=== PATIENT | male | born 1960 | race Caucasian/White ===

== ENCOUNTER 2016-12-03 16:36 | Inpatient (IN) | payer OTHER ==
[~2016-12-03] VITALS: Ht 154.9 cm; Wt 65.5 kg
[~2016-12-03 16:36] MED LIST: ALD50 PO; ALDACTONE25 MG; FER300 PO; FUROSEMIDE20 MG; IND20 PO; LAC PO; LAC15L PO; LASIX40 MG PO; LEVAQUIN750 MG PO; LIPI10; NEPHRO-VITE VITA1 EA PO; PROPRANOLOL HCL10 MG; PROTONIX20 MG PO; XIFAXAN550 M1 PO
[2016-12-03 22:27] LABS: BASOPHIL % 1.1 % (0-2)
[2016-12-03 22:28] LABS: PLATELET COUNT 80 x10^3mcL (130-400); RED CELL DISTRIBUTION WIDTH 16.8 % (11.5-14.5)
[2016-12-03 22:46] LABS: T3 TOTAL 0.81 ng/mL
[2016-12-03 23:00] LABS: CK-MB 0.7 ng/mL (0-3.6)
[2016-12-03 23:05] LABS: CALCIUM 8.3 mg/dL (8.5-10.1); CARBON DIOXIDE 22.5 mmol/L (21-32); CREATININE SERUM 1.4 mg/dL (0.7-1.3); POTASSIUM SERUM 4.1 mmol/L (3.5-5.1)
[2016-12-03 23:11] LABS: BILIRUBIN TOTAL 2.65 mg/dL (0.20-1.00); C REACTIVE PROTEIN 1.1 mg/dL (<=0.9); TOTAL PROTEIN, SERUM 6.6 g/dL (6.4-8.2)
[2016-12-03 23:12] LABS: ALBUMIN 2.1 g/dL (3.4-5.0)
[2016-12-03 23:21] LABS: T4(THYROXINE) 7.4 ug/dL (4.7-13.3)
[2016-12-03 23:29] LABS: UA SPECIFIC GRAVITY >=1.030 (1.005-1.035); microscopic required? YES; urine erythrocyte TRACE (NEGATIVE)
[2016-12-03 23:38] LABS: ERYTHROCYTE SED RATE 69 mm/hr (0-20)
[2016-12-03] MEDS ORDERED: NATURE'S BLEND100 M2 PO (23:55)
[2016-12-03] MEDS ORDERED: PROPRANOLOL HCL20 MG PO (23:57)
[2016-12-03] MEDS ORDERED: ATORVASTATIN CA20 M1 PO (23:59)
[2016-12-04] VITALS (15 sets, daily range): BP systolic 87–134; BP diastolic 39–66
[2016-12-04 03:37] LABS: CHOLESTEROL/HDL RATIO 5.1
[2016-12-04 03:37] LABS: AMPHETAMINE QUAL UR NONE DETECTED (NEG <=1000)
[2016-12-04 20:56] LABS: SOURCE FLUID THORACENTESIS
[2016-12-05 05:57] VITALS: BP 97/56
[2016-12-05 06:30] LABS: CALCIUM 7.9 mg/dL (8.5-10.1); CARBON DIOXIDE 21.4 mmol/L (21-32); CHLORIDE SERUM 108 mmol/L (98-107); CREATININE SERUM 1.3 mg/dL (0.7-1.3); GFR1 > 60 mL/min; GLUCOSE SERUM 74 mg/dL (74-106); MAGNESIUM 1.5 mg/dL (1.8-2.4); PHOSPHOROUS 4.3 mg/dL (2.5-4.9); POTASSIUM SERUM 4.1 mmol/L (3.5-5.1); SODIUM SERUM 137 mmol/L (136-145)
[2016-12-05 06:41] LABS: BASOPHIL % 0.5 % (0-2); PLATELET COUNT 77 x10^3mcL (130-400); RED CELL DISTRIBUTION WIDTH 16.6 % (11.5-14.5)
[2016-12-05 09:39] VITALS: BP 106/54
[2016-12-05 13:06] VITALS: BP 119/59
[2016-12-05 17:07] VITALS: BP 104/66
[2016-12-05 22:13] VITALS: BP 111/62
[2016-12-06 06:08] LABS: BASOPHIL % 1.3 % (0-2)
[2016-12-06 06:24] VITALS: BP 111/64
[2016-12-06 06:28] LABS: CALCIUM 7.6 mg/dL (8.5-10.1); CARBON DIOXIDE 24.8 mmol/L (21-32); CHLORIDE SERUM 110 mmol/L (98-107); CREATININE SERUM 1.2 mg/dL (0.7-1.3); GFR1 > 60 mL/min; GLUCOSE SERUM 88 mg/dL (74-106); MAGNESIUM 1.9 mg/dL (1.8-2.4); PHOSPHOROUS 3.3 mg/dL (2.5-4.9); POTASSIUM SERUM 3.7 mmol/L (3.5-5.1); SODIUM SERUM 139 mmol/L (136-145)
[2016-12-06 06:49] LABS: PLATELET COUNT 73 x10^3mcL (130-400); RED CELL DISTRIBUTION WIDTH 16.7 % (11.5-14.5)
[2016-12-06 08:33] VITALS: BP 93/52
[2016-12-06 10:04] VITALS: BP 106/59
[2016-12-06 13:41] VITALS: BP 99/63
[2016-12-06] MEDS ORDERED: NEO500 PO (17:17)
[2016-12-06] MEDS ORDERED: ALD50 PO (17:19)
[2016-12-06 17:24] VITALS: BP 99/63
[2016-12-06] MEDS ORDERED: LAC PO (17:29)
[2016-12-06] MEDS ORDERED: CLEOCIN HCL300 MG PO (17:29)
[2016-12-06] MEDS ORDERED: LEVAQUIN750 MG PO (17:29)
[2016-12-06 18:10] VITALS: BP 99/54
== END 2016-12-06 18:13 | disposition home or self-care (01) | DRG 137 ==
LOC: ED 16:36 → DU 23:35 → MU 12-06 06:01
PROVIDERS: Family Medicine; Specialist; ADMIT Family Medicine
PROC: 0W993ZZ Drainage of Right Pleural Cavity, Percutaneous Approach (ICD-10-PCS; principal; 2016-12-04)
DX: J69.0 Pneumonitis due to inhalation of food and vomit (principal); E43 Unspecified severe protein-calorie malnutrition; J90 Pleural effusion, not elsewhere classified; E72.4 Disorders of ornithine metabolism; E72.20 Disorder of urea cycle metabolism, unspecified; R18.8 Other ascites; K70.31 Alcoholic cirrhosis of liver with ascites; I16.0 Hypertensive urgency; E78.5 Hyperlipidemia, unspecified; Z68.27 Body mass index [BMI] 27.0-27.9, adult; K74.60 Unspecified cirrhosis of liver; E87.1 Hypo-osmolality and hyponatremia
CPT/HCPCS: 32555; 80307; 83880; 84439; C1729; C9113; J2405; J2543; J3475; J7030; Q0092

== ENCOUNTER 2016-12-15 18:58 | Inpatient (IN) | payer OTHER ==
[~2016-12-15] VITALS: Ht 154.9 cm; Wt 64.9 kg
[~2016-12-15 18:58] MED LIST changes: +ATORVASTATIN CA20 M1 PO; +CLEOCIN HCL300 MG PO; +NATURE'S BLEND100 M2 PO; +NEO500 PO; +PROPRANOLOL HCL20 MG PO
--- NOTE | 2016-12-15 19:19 | NUR ---
PT CAME TO THE ED TODAY WITH CO GEN ABDOMINAL PAIN WITH A SORE THROAT THAT STARTED YESTERDAY. PT STATES " I HAD FLUID DRAINED FROM MY ABDOMEN 3 MONTHS AGO AND IM NOT SURE IF THEY NEED TO DO THAT AGAIN." PT ABD SLIGHTLY DISTENDED AND FIRM. PT HAS HX OF LIVER FAILURE. PT IS AWAKE AND ALERT. BREATING EVEN AND UNLABORED. PT DENIES ANY CP. PT DENIES ANY N/V/D. PT IS SITTING ON GURNEY WITH NAD. WILL CONTINUE TO MONITOR.
[2016-12-15 20:56] LABS: CALCIUM 7.7 mg/dL (8.5-10.1); CARBON DIOXIDE 19.8 mmol/L (21-32); CREATININE SERUM 3.2 mg/dL (0.7-1.3); POTASSIUM SERUM 3.9 mmol/L (3.5-5.1)
[2016-12-15 20:57] LABS: RED CELL DISTRIBUTION WIDTH 16.6 % (11.5-14.5)
[2016-12-15 20:58] LABS: PLATELET COUNT 43 x10^3mcL (130-400)
[2016-12-15 21:00] LABS: BILIRUBIN TOTAL 3.14 mg/dL (0.20-1.00)
[2016-12-15 21:01] LABS: ALBUMIN 1.7 g/dL (3.4-5.0); TOTAL PROTEIN, SERUM 5.8 g/dL (6.4-8.2)
[2016-12-15 21:17] LABS: BAND NEUTROPHIL 17 % (0-10); BASOPHIL 0 % (0-2); METAMYELOCTE 2 % (0-2); MONOCYTE 3 % (0-7); SEGMENTED NEUTROPHILS 76 % (37-75); rbc morphology (normal/abnorm) ABNORMAL (NORMAL)
[2016-12-15 21:18] LABS: burr cell (echinocyte) 1+
--- NOTE | 2016-12-15 21:42 | NUR ---
PT GIVEN WARM BLANKETS, PT DOES NOT HAVE A FEVER.
[2016-12-15 21:54] LABS: UA SPECIFIC GRAVITY 1.025 (1.005-1.035); microscopic required? YES; urine erythrocyte 3+ (NEGATIVE)
--- NOTE | 2016-12-15 22:03 | NUR ---
PT IS UNABLE TO RECALL MEDS, AND WHEN SHOWN THE MEDICATIONS FROM PRIOR, PT IS UNSURE. FAMILY WILL BRING IN THE AM
[2016-12-15 22:45] LABS: MAGNESIUM 1.8 mg/dL (1.8-2.4); PHOSPHOROUS 4.7 mg/dL (2.5-4.9)
[2016-12-15 22:45] LABS: AMPHETAMINE QUAL UR NONE DETECTED (NEG <=1000)
[2016-12-15 22:47] LABS: CHOLESTEROL/HDL RATIO 3.1
[2016-12-15 22:55] LABS: FREE T4 1.33 ng/dL (0.76-1.46); FREE THYROXINE INDEX 1.9 ug/dL (1.4-4.5); T4(THYROXINE) 4.8 ug/dL (4.7-13.3)
[2016-12-15 23:08] LABS: T3 TOTAL 0.55 ng/mL
--- NOTE | 2016-12-15 23:43 | NUR ---
PER RESIDENT FABIENNE, HOLD OFF ON LACTULOSE FOR NOW, BUT OKAY TO GIVE PROBIOTIC
[2016-12-16] VITALS (8 sets, daily range): BP systolic 83–100; BP diastolic 48–57
--- NOTE | 2016-12-16 00:31 | NUR ---
REPORT GIVEN TO RANULFO FOR FURTHER CARE OF PT.
--- NOTE | 2016-12-16 01:02 | NUR ---
RECIEVED PATIENT FROM ED VIA GUERANNIE, PATIENT IN NO ACUTE DISTRESS, C/O PAIN TO HEAD, EPIGASTRIC AND THROAT WILL MEDICATE ORDERED, ORIENTED PATIENT TO ROOM AND SURROUNDINGS, SPOUSE AT BEDSIDE, ALERT AND ORIENTED, BED IN LOW POSITION, BED RAILS UP X 2, CALL LIGHT WITHIN REACH, WILL ENDORSE CARE TO LOVELEE RN
--- NOTE | 2016-12-16 01:27 | NUR ---
PT RESTING IN BED. [facility] SPEAKING WITH CLEAR SPEECH. ON ROOM AIR 100%. PT C/O HAVING DIFFICULTY BREATHING. INITIATED O2 1L VIA NC FOR COMFORT. HOB ELEVATED. LUNGS CLEAR TO ALL LOBES ON AUSCULTATION. C/O PAIN TO CHEST, HEAD, AND THROAT 11/19. BP 92/54, HR 72, MAP 66. ON TELE 24, SR WITH BBB. ABD DISTENDED, BUT SOFT. BOWEL SOUNDS ACTIVE. LAST BM 12/15/16. SALINE LOCK TO LEFT AC PATENT AND INTACT. IV TO RIGHT FA PATENT AND IV INFUSING WELL. NO S/S OF INFECTION NOTED. SKIN WARM AND DRY. NOTED WITH 1-2+ EDEMA TO BLE. PULSES PALPABLE. SCDS IN PLACE. CALL LIGHT WITHIN REACH. WILL CONTINUE TO MONITOR.
--- NOTE | 2016-12-16 01:38 | NUR ---
DR. LOVING UPDATED REGARDING PT'S CURRENT BP 92/54, HR 72, MAP 66. DR. LOVING STATES TO HOLD LACTULOSE D/T PT'S LOW BP. WILL CONTINUE TO MONITOR.
--- NOTE | 2016-12-16 06:00 | NUR ---
PT EASILY AROUSED. ALERT AND VERBAL. DENIES ANY PAIN AT THIS TIME. NOTED WITH SLIGHTLY SHALLOW BREATHING. 95% 1L O2 VIA NC. LUNGS CLEAR BILATERALLY. NOTED BP 83/57, HR 74, MAP 66. DENIES ANY DIZZINESS OR HEADACHE. SWALLOWED ROUTINE MEDICATION WITHOUT DIFFICULTY. CALL LIGHT WITHIN REACH. WILL CONTINUE TO MONITOR.
--- NOTE | 2016-12-16 06:45 | NUR ---
PAGEGATED DR. LOVING REGARDING PT'S BP 83/57, HR 74, MAP 66. PT DENIES ANY DIZZINESS OR HEADACHE. AWAITING NEW ORDERS. WILL CONTINUE TO MONITOR.
[2016-12-16 06:49] LABS: CALCIUM 7.3 mg/dL (8.5-10.1); CARBON DIOXIDE 18.5 mmol/L (21-32); CREATININE SERUM 2.8 mg/dL (0.7-1.3); MAGNESIUM 1.9 mg/dL (1.8-2.4); PHOSPHOROUS 6.1 mg/dL (2.5-4.9); POTASSIUM SERUM 4.7 mmol/L (3.5-5.1)
[2016-12-16 07:48] LABS: RED CELL DISTRIBUTION WIDTH 16.6 % (11.5-14.5)
[2016-12-16 07:50] LABS: PLATELET COUNT 41 x10^3mcL (130-400)
--- NOTE | 2016-12-16 08:48 | NUR ---
0800 RECEIVED PATIENT SLEEPING EASILY AROUSABLE, NO COMPLAINT OF PAIN OR SOB, ULTRASOUND RESULTS AVAILABLE PAGED DOCTOR, ABDOMEN DISTENDED NONTENDER CURRENTLY PATIENT NPO, IV INTACT, PATIENT LYING IN BED SUPINE BED IN LOW POSITION CALL LIGHT IN PLACE SIDE RAILS UP, FAMILY AT BEDSIDE
[2016-12-16 10:49] LABS: BAND NEUTROPHIL 25 % (0-10); BASOPHIL 0 % (0-2); MONOCYTE 1 % (0-7); PLATELET MORPHOLOGY PLATELETS DECREASED; SEGMENTED NEUTROPHILS 72 % (37-75); rbc morphology (normal/abnorm) ABNORMAL (NORMAL)
--- NOTE | 2016-12-16 12:47 | NUR ---
PATIETN SLEEPING EASILY AROUSABLE NO SIGN OF DISTRESS OR SOB NO PAIN VERBALIZED, PATIENT LYING IN BED SUPINE BED IN LOW POSITION CALL LIGHT IN APLCE SIDE RAILS UP, FAMILY AT BEDSIDE
--- NOTE | 2016-12-16 16:31 | NUR ---
PATIENT ALERT AND ORIENTED X 4 WATCHING TELEVISION, IV SITE RIGHT FOREARM CAME OUT APPLIED BANDAGE NO COMPLICATIONS, FLUSHED AND USED EXISTING 22G IV SITE FOR FLUID ON LEFT AC, INFORMED DOCTOR SHARMIN OF WBC 12.3, NO NEW ORDERS, PATIENT LYING WITH HOB ELEVATED BED IN LOW POSITION CALL LIGHT IN PLACE SIDE RAILS UP, NO PAIN VERBALIZED, NO SOB
--- NOTE | 2016-12-16 19:35 | NUR ---
PT RESTING IN BED WATCHING TV. ALERT AND VERBAL. AOX4. CHINESE SPEAKING WITH CLEAR SPEECH. DENIES ANY SOB. NO S/S OF RESPIRATORY DISTRESS NOTED. LUNGS CLEAR BILATERALLY. DENIES ANY CHEST PAIN. BP 98/53, HR 69. IV 1L NS BOLUS RUNNING. ABD REMAINS DISTENDED, BUT SOFT. BOWEL SOUNDS ACTIVE. DENIES ANY NAUSEA. NOTED WITH 1-2+ EDEMA TO BLE. PULSES WEAK, BUT PALPABLE. SCDS IN PLACE. DENIES ANY PAIN AT THIS TIME. NO S/S OF DISTRESS OR DISCOMFORT NOTED. CALL LIGHT WITHIN REACH. WILL CONTINUE TO MONITOR.
--- NOTE | 2016-12-16 21:30 | NUR ---
AFTER IV NS BOLUS, RECHECKED BP 100/55, HR 70, MAP 69. PT ALERT AND AWAKE. DENIES ANY PAIN AT THIS TIME. NO S/S OF DISTRESS NOTED. IV PATENT AND INTACT. NO S/S OF INFECTION NOTED. RECEIVED ROUTINE MEDICATIONS AND SWALLOWED WITHOUT DIFFICULTY. DR. WEIR UPDATED REGARDING PT'S CURRENT BP 100/55, HR 70, AND MAP 69; DENIES ANY PAIN. STATES TO HOLD COLACE AT THIS TIME D/T LOW BP. JUST CONTINUE TO MONITOR AT THIS TIME. NO NEW ORDERS.
--- NOTE | 2016-12-17 00:11 | NUR ---
PT RESTING IN BED WITH EYES CLOSED. BREATHING EQUAL AND UNLABORED. IV PATENT AND INFUSING WELL. NO S/S OF INFECTION NOTED. NO ADVERSE REACTIONS NOTED FROM IV ZOSYN. NO S/S OF DISTRESS OR DISCOMFORT NOTED. CALL LIGHT WITHIN REACH. WILL CONTINUE TO MONITOR.
--- NOTE | 2016-12-17 04:30 | NUR ---
PT ALERT AND AWAKE. DENIES ANY PAIN. PT C/O NAUSEA. PRN ZOFRAN 4 MG IVP GIVEN. IV PATENT AND INFUSING WELL. NO S/S OF INFECTION NOTED. NO ADVERSE REACTIONS NOTED FROM IV ZOSYN. CALL LIGHT WITHIN REACH. WILL CONTINUE TO MONITOR.
[2016-12-17 05:40] VITALS: BP 103/56
--- NOTE | 2016-12-17 06:11 | NUR ---
PT SLEPT WELL THROUGHOUT THE NIGHT. RESTING IN BED WITH EYES CLOSED. EASILY AROUSED WHEN NAME CALLED. RECEIVED ROUTINE MEDICATION AND SWALLOWED WITHOUT DIFFICULTY. NO S/S OF DISTRESS OR DISCOMFORT NOTED. IV PATENT AND INFUSING WELL. CALL LIGHT WITHIN REACH. WILL CONTINUE TO MONITOR.
[2016-12-17 06:19] LABS: CALCIUM 7.3 mg/dL (8.5-10.1); CARBON DIOXIDE 20.4 mmol/L (21-32); CREATININE SERUM 2.4 mg/dL (0.7-1.3); MAGNESIUM 2.2 mg/dL (1.8-2.4); PHOSPHOROUS 4.5 mg/dL (2.5-4.9); POTASSIUM SERUM 3.8 mmol/L (3.5-5.1)
[2016-12-17 06:54] LABS: PLATELET COUNT 46 x10^3mcL (130-400); RED CELL DISTRIBUTION WIDTH 16.2 % (11.5-14.5)
--- NOTE | 2016-12-17 07:10 | NUR ---
RECEIVED REPORT FROM CARRIE WINCHESTER AT THIS TIME. PATIENT IS RESTING IN BED WITH EYES CLOSED. ON O2 2L VIA NC, NO DISTRESS NOTED. TELE # [address] IV INFUSING NS AT 10ML/HR TO LAC. FAMILY IS AT THE BEDSIDE. SAFTEY MEASURES IN PLACE. WILL CONTINUE TO MONITOR.
--- NOTE | 2016-12-17 07:41 | NUR ---
ROUNDS MADE AT THIS TIME. DR. CARMONA, RESIDENT TEAM, CARBONIZER TESTER KRIS, AND PRIMARY RN AT THE BEDSIDE. PLAN OF CARE IS DISCUSSED. QUESTIONS AND CONCERNS ADDRESSED. FAMILY AT THE BEDSIDE. WILL CONTINUE TO MONITOR.
[2016-12-17 08:27] LABS: BAND NEUTROPHIL 28 % (0-10); BASOPHIL 0 % (0-2); MONOCYTE 12 % (0-7); SEGMENTED NEUTROPHILS 53 % (37-75)
[2016-12-17 08:28] LABS: rbc morphology (normal/abnorm) ABNORMAL (NORMAL); tear drop cell (dacryocyte) 1+
[2016-12-17 08:30] LABS: PLATELET MORPHOLOGY PLATELETS DECREASED
--- NOTE | 2016-12-17 09:51 | NUR ---
DR. CHING IN TO SEE PATIENT AND DISCUSS PLAN OF CARE AT THIS TIME. QUESTIONS AND CONCERNS ADDRESSED.
[2016-12-17 10:22] VITALS: BP 100/58
--- NOTE | 2016-12-17 10:43 | NUR ---
NOTIFIED DR. CHING HGB 8.1, HCT 24, BUN 34 AND CREAT 2.4 AT THIS TIME.
--- NOTE | 2016-12-17 12:31 | NUR ---
IN TO SEE PATIENT AND GIVE DUE MEDICATIONS (SEE EMAR). PATIENT RESTING IN BED ON ROOM AIR, NO DISTRESS NOTED. DENIES PAIN. CALL LIGHT WITH IN REACH. WILL CONTINUE TO MONITOR.
--- NOTE | 2016-12-17 12:45 | NUR ---
DR. CHING NOTIFIED GRAM - RODS IN BLOOD CULTURE
[2016-12-17 13:26] VITALS: BP 123/60
--- NOTE | 2016-12-17 15:30 | NUR ---
Initial Nutrition Assessment Dx: Sepsis 2/2 Aspiration Pneumonia PMHx: Liver Cirrhosis, Alcoholism, HTN PSHx:None Labs: BG 87, BUN 34H, Cr 2.4H, Alb 1.7L, NH4 33H (trending down), WBC 17.3H, H/H 8.1/24L Meds: lactulose, lactinex, nephro-gladys, thaimine, protonix, ferrous sulfate, colace, lasix, zofran, NS, norco Current Diet Order: Low fat and 2gm Na+ (12/17) PO Intakes: 100-25% (12/17) I/O:2860/8 (+2852ml) Ht: 154cm,61". Wt: 141lbs, 64kg. BMI: 27 kg/m2 (Overweight) IBW: 112lb, 51 kg. %IBW: 126%. UBW: 163lbs, 74kg (10/03/16) as per last RD note Age: 56 Y/O M Food Allergies: NKFA Skin: intact. Billy:22. Edema: None noted GI:denies pain. Last BM:1 (12/16) RN Trigger: N/V/D > 3 days, poor PO intake > 3 days Pt admitted w/Sepsis 2/2 Aspiration Pneumonia. As per doctor's progress note 12/17-Spoke with Urszula from Scheduling at Dr. Bill Blakely's office; he did not show up for his appt on the of the month. She also confirmed that he was called the Saturday before December 10 to confirm his appointment. Confirmed with [facility] pharmacy he picked up 5 presciptions that on D/C on December 06 which included Levquin and Clindamycin. Pt stated with his family at bedside their belief and understanding was NOT to take any medications until seeing their PCP [facility] On Saturday the . This was cleared up and the pt was educated on the need to take all medications a hospital prescribes AND if the PCP would like to stop one then they can stop it, but to always take was is prescribed in its entirety if it is antibiotics. Pt and family member at bedside understand now. Pt also endorsed he was 10 minutes late for his appointment and the staff would not allow for him to be seen. Pt seen at bedside w/ family present, pt requested interview in [place], the RD agreed and translated, pt reports not eating much for lunch d/t lethargy, denies GI issues, states having education before on 2gm Na+ diet but doesn't follow it, pt states he only needs to come to the hospital "so they can fix me again." Pt declined any further review on cirrhosis MNT. Problem with: N: None. V: None. D: none. C: None. Problem with: Chewing: None. 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 Current Appetite: Good-poor d/t lethargy Recent Weight Change: 22lbs. % Weight Change: 13 Vitamin/Supplement Use: none Diet at Home: 2-3 meals per day as prepared by family Physical Activity: walking Education: yes however, does not follow recommendations Estimated Nutritional Needs Based on CBW 141 lb, 64kg Energy: 2635-8173 kcal/day (30-35 kcal/kg for Cirrhosis) Protein: 38-51 g/day (0.6-0.8 g/kg for Elevated Ammonia) Fluid: 6539-6222 ml/day (30-35 ml/kg for Cirrhosis) or per MD Nutrition Diagnosis 1. Lack of adherence to food and nutrition related recommendations related to pt's personal life choices as evidenced by pt's self-report and ammonia 44 Intervention 1. 2gm Na+ and 50g protein diet. Make food preferences known. 2. Once Ammonia is WNL, protein restriction may be D/C. Monitor/Evaluate Goal: PO intakes to meet at least 50-75% of estimated needs w/ tolerance Monitor: PO intakes/tolerance, labs, skin integrity, GI function, wt F/U in 7 days as LOW risk (12/24)
--- NOTE | 2016-12-17 15:31 | NUR ---
1. 2gm Na+ and 50g protein diet. Make food preferences known. 2. Once Ammonia is WNL, protein restriction may be D/C.
--- NOTE | 2016-12-17 17:07 | NUR ---
RECEIVED ORDERS FOR US GUIDED THORACENTESIS TO BE DONE EARLY AM TOMORROW. SPOKE WITH DR GALINDO BY PHONE WHO WILL BE AVAILABLE BY [address] GALINDO OF PATIENT'S PT/INR/PTT AND PLATELET COUNT. HE WOULD LIKE THE ATTENDING PHYSICIAN TO ORDER PLATELETS TO BE GIVEN AND REPEAT THE LABS IN THE MORNING. SPOKE WITH PRIVATE TUTORS AND TEACHERSROMELIA PONCE WHO WILL NOTIFY DR CHING.
--- NOTE | 2016-12-17 17:25 | NUR ---
DR. CHING IN TO SPEAK TO PATIENT REGARDING THORACENTESIS OF RIGHT PLEURA EFFUSION. PATIENT VERBALIZES UNDERSTANDING. CONSENT SIGNED AT THIS TIME.
[2016-12-17 17:50] VITALS: BP 129/78
--- NOTE | 2016-12-17 19:38 | NUR ---
RECEIVED PATIENT IN BED AWAKE, ALERT AND ORIENTED YORUBA SPEAKING WITH NO SIGN OF ACUTE DUISTRESS NOTED . TELE#24, NSR ON MONITOR, DENIES CHESTPAIN. EDEMA +2 TO BLE NOTED SCD ON. RESPIRATION EVEN AND NONLABOR WITH CLEAR BS, SOB ON EXERTION NOTED. IV TO LAC INTACT AND INFUSING WELL. WILL CONTINUE TO MONITOR, CALL LIGHT WITHIN REACH.
[2016-12-17 20:24] VITALS: BP 122/69
--- NOTE | 2016-12-17 23:58 | NUR ---
SLEEPING THIS TIME BREATHING EASY AND NON LABOR. WILL CONTINUE TO MONITOR.
[2016-12-18] VITALS (11 sets, daily range): BP systolic 106–145; BP diastolic 62–78
--- NOTE | 2016-12-18 05:26 | NUR ---
SLEPT AT LONG INTERVALS, ALL NEEDS ATTENDED.
[2016-12-18 06:20] LABS: BASOPHIL % 0.7 % (0-2)
[2016-12-18 06:41] LABS: PLATELET COUNT 50 x10^3mcL (130-400); RED CELL DISTRIBUTION WIDTH 16.4 % (11.5-14.5)
[2016-12-18 06:50] LABS: CALCIUM 7.6 mg/dL (8.5-10.1); CARBON DIOXIDE 21.9 mmol/L (21-32); CREATININE SERUM 1.8 mg/dL (0.7-1.3); POTASSIUM SERUM 3.3 mmol/L (3.5-5.1)
--- NOTE | 2016-12-18 09:01 | NUR ---
PT IS TAKEN DOWNSTAIR FOR THORACENTISIS. HELD PT'S MEDS, WILL GIVE LATER.
--- NOTE | 2016-12-18 09:45 | NUR ---
DR GALINDO PERFORMED RIGHT THORACENTESIS, AWARE OF AM LABS. PATIENT TOLERATED PROCEDURE WELL. RETURNED TO ROOM 201B UNEVENTFULLY.
--- NOTE | 2016-12-18 10:04 | NUR ---
RECEIVED PT BACK FROM THORACENTISIS. PT'S VS CHECKED: BP 145/67, HR 82 BPM, O2 SAT 99%, DENIED PAIN AT THIS TIME. BANDAID ON R BACK, CDI AT THIS TIME. WILL CONTINUE TO MONITOR PT.
[2016-12-18 11:29] LABS: SOURCE FLUID PLEURAL
--- NOTE | 2016-12-18 17:29 | NUR ---
AFTER THORACENTISIS 1900ML OUT. MONITORED PT'S VS, PT'S VS STAY STABLE. PT NO COMPLAIN OF PAIN AND SOB. PT BREATHING ON RA, EVEN, UNLABORED. IV SITE PATENT, INTACT. ANTIBIOTIC IS INFUSING AT THIS TIME.
--- NOTE | 2016-12-18 19:30 | NUR ---
PT ALERT/ORIENTED X4. NO C/O PAIN. PT IS S/P THORACENTESIS TODAY: BANDAID TO RT SIDE OF BACK IS CDI. PT ASSESSED; SEE NSG FLOWSHEET. SAFETY REINFORCED; SEE EDUCAT SHEET. WILL CONTINUE TO MONITOR.
--- NOTE | 2016-12-18 22:30 | NUR ---
PT AWAKE. NO C/O PAIN. WILL CONTINUE TO MONITOR.
--- NOTE | 2016-12-19 01:28 | NUR ---
PT SLEEPING. NO DISTRESS NOTED. BREATHING IS EVEN AND UNLABORED. WILL CONTINUE TO MONITOR.
--- NOTE | 2016-12-19 03:50 | NUR ---
PT SLEEPING. BREATHING IS EVEN AND UNLABORED. NO DISTRESS NOTED.WILL CONTINUE TO MONITOR.
--- NOTE | 2016-12-19 05:06 | NUR ---
PT SLEPT IN LONG INTERVALS THROUGHOUT THE NIGHT.NO DISTRESS NOTED. NO C/O PAIN. WILL CONTINUE TO MONITOR.
[2016-12-19 05:48] VITALS: BP 114/65
[2016-12-19 06:27] LABS: CALCIUM 7.7 mg/dL (8.5-10.1); CREATININE SERUM 1.6 mg/dL (0.7-1.3)
[2016-12-19 06:45] LABS: PLATELET COUNT 52 x10^3mcL (130-400); RED CELL DISTRIBUTION WIDTH 16.4 % (11.5-14.5)
[2016-12-19 06:47] LABS: POTASSIUM SERUM 2.9 mmol/L (3.5-5.1)
--- NOTE | 2016-12-19 07:21 | NUR ---
ALL PT CARE ENDORSED TO LISETH LEÓN
--- NOTE | 2016-12-19 07:28 | NUR ---
RECIEIVED PATIENT AAOX4, ABLE TO COMMUNICATE AND FOLLOW COMMANDS, NO DISTRESS NOTED, AND DENIES PAIN. PALPABLE PULSES TO BUE/BLE. ON ROOM AIR, DENIES SOB, AND RESPIRATIONS EVEN AND UNLABORED. DENIES N/V/D. VOIDS FREELY WITH BRP AND UP WITH MINIMAL ASSIST. SALINE LOCK TO RFA CDI. BED TO LOWEST POSITION, SIDE RAILS UP X2, CALL LIGHT AND BELONGINGS WITHIN REACH, AND WILL CONTINUE TO MONITOR.
[2016-12-19 08:46] LABS: BAND NEUTROPHIL 0 % (0-10); BASOPHIL 0 % (0-2); MONOCYTE 12 % (0-7); SEGMENTED NEUTROPHILS 60 % (37-75)
[2016-12-19 08:48] LABS: PLATELET MORPHOLOGY PLATELETS DECREASED; rbc morphology (normal/abnorm) ABNORMAL (NORMAL)
[2016-12-19 09:18] VITALS: BP 114/65
--- NOTE | 2016-12-19 09:21 | NUR ---
PATIENT AAOX4, SITTING UP IN BED, NO DISTRESS NOTED, RESPIRATIONS EVEN AND UNLABORED, ENDORSE CARE TO ROMELIA AL.
--- NOTE | 2016-12-19 09:30 | NUR ---
RECEIVED REPORT FROM LISETH LEÓN, ASSUMING CARE OVER PT.
[2016-12-19 09:46] VITALS: BP 119/76
--- NOTE | 2016-12-19 10:18 | NUR ---
PT ASLEEP, NO INDICATION OF PAIN, BREATHING EVEN AND UNLABORED, CALL LIGHT WITHIN REACH, WILL CONTINUE TO MONITOR.
--- NOTE | 2016-12-19 11:12 | NUR ---
PT AROUSED FROM SLEEP, DENIES SOB, DENIES PAIN, CALL LIGHT WITHIN REACH, WILL CONTINUE TO MONITOR.
--- NOTE | 2016-12-19 12:10 | NUR ---
PT DENIES SOB, DENIES PAIN, CALL LIGHT WITHIN REACH, WILL CONTINUE TO MONITOR.
[2016-12-19 12:50] LABS: CALCIUM 7.6 mg/dL (8.5-10.1); CARBON DIOXIDE 27.4 mmol/L (21-32); CREATININE SERUM 1.6 mg/dL (0.7-1.3)
--- NOTE | 2016-12-19 13:32 | NUR ---
PT DENIES SOB, DENIES PAIN, PT STATES HE ATE LUNCH, CALL LIGHT WITHIN REACH, WILL CONTINUE TO MONITOR.
[2016-12-19 13:39] VITALS: BP 111/65
--- NOTE | 2016-12-19 14:35 | NUR ---
PT ASLEEP, NO INDICATION OF PAIN, BREATHING EVEN AND UNLABORED, CALL LIGHT WITHIN REACH, WILL CONTINUE TO MONITOR.
--- NOTE | 2016-12-19 14:40 | NUR ---
KAYLA HERNANDEZ SPOKE WITH PT CONCERNING FOLLOW UP APPOINTMENT AND NURSING TO VISIT AT HOME.
--- NOTE | 2016-12-19 15:11 | NUR ---
PT DENIES SOB, DENIES PAIN, WATCHING TV, CALL LIGHT WITHIN REACH, WILL CONTINUE TO MONITOR.
--- NOTE | 2016-12-19 16:06 | NUR ---
PT DENIES SOB, DENIES PAIN, WATCHING TV, CALL LIGHT WITHIN REACH, WILL CONTINUE TO MONITOR.
[2016-12-19 16:50] LABS: CALCIUM 7.7 mg/dL (8.5-10.1); CARBON DIOXIDE 25.9 mmol/L (21-32); CREATININE SERUM 1.6 mg/dL (0.7-1.3); POTASSIUM SERUM 3.7 mmol/L (3.5-5.1)
[2016-12-19 17:06] VITALS: BP 105/61
--- NOTE | 2016-12-19 17:11 | NUR ---
PT RECEIVED DISCHARGE INSTRUCTIONS, VERBALIZED UNDERSTANDING, ALL QUESTIONS ANSWERED, IV DC'D CATHETER INTACT, ARMBANDS DC'D, PT MADE AWARE TO CONITNUE MEDS PRESCRIBED, PT MADE AWARE OF FOLLOW UP APPOINTMENT, MADE AWARE TO NOTIFY STAFF WHEN READY TO BE ESCORTED DOWNSTAIRS, CALL LIGHT WITHIN REACH, WILL CONTINUE TO MONITOR.
--- NOTE | 2016-12-19 17:55 | NUR ---
PT ESCORTED DOWNSTAIRS BY RN.
== END 2016-12-19 17:50 | disposition home or self-care (01) | DRG 720 ==
LOC: ED 18:58 → DU 12-16 00:06 → MU 12-18 11:40
PROVIDERS: Emergency Medicine; Family Medicine; ADMIT Family Medicine
DX: A41.9 Sepsis, unspecified organism (principal); N17.0 Acute kidney failure with tubular necrosis; J69.0 Pneumonitis due to inhalation of food and vomit; R65.20 Severe sepsis without septic shock; N39.0 Urinary tract infection, site not specified; E87.1 Hypo-osmolality and hyponatremia; K70.31 Alcoholic cirrhosis of liver with ascites; E43 Unspecified severe protein-calorie malnutrition; E80.6 Other disorders of bilirubin metabolism; Z68.27 Body mass index [BMI] 27.0-27.9, adult; I10 Essential (primary) hypertension; E72.20 Disorder of urea cycle metabolism, unspecified
CPT/HCPCS: 32555; 80307; 83880; 84439; 94150; C1729; G0480; J1940; J2405; J2543; J3480; J3490; J7030; J7040; Q0092

== ENCOUNTER 2017-01-20 14:58 | Emergency (ER) | payer OTHER ==
[2017-01-20 17:09] VITALS: BP 131/74
== END 2017-01-20 17:09 | disposition home or self-care (01) ==
LOC: ED 14:58
DX: R42 Dizziness and giddiness (principal)
CPT/HCPCS: 82962

== ENCOUNTER 2017-01-21 14:31 | Inpatient (IN) | payer OTHER ==
[~2017-01-21] VITALS: Ht 154.9 cm; Wt 58.2 kg
[2017-01-21 17:27] LABS: CALCIUM 8.2 mg/dL (8.5-10.1); CARBON DIOXIDE 17.1 mmol/L (21-32); CREATININE SERUM 1.4 mg/dL (0.7-1.3); POTASSIUM SERUM 4.5 mmol/L (3.5-5.1)
[2017-01-21 17:29] LABS: BASOPHIL % 0.3 % (0-2)
[2017-01-21 17:30] LABS: PLATELET COUNT 68 x10^3mcL (130-400); RED CELL DISTRIBUTION WIDTH 18.6 % (11.5-14.5)
[2017-01-21 17:33] LABS: BILIRUBIN TOTAL 2.67 mg/dL (0.20-1.00); TOTAL PROTEIN, SERUM 6.6 g/dL (6.4-8.2)
[2017-01-21 17:34] LABS: ALBUMIN 2.1 g/dL (3.4-5.0)
[2017-01-21 17:48] LABS: CHOLESTEROL/HDL RATIO 3.5; MAGNESIUM 1.7 mg/dL (1.8-2.4)
[2017-01-21 18:00] LABS: T3 TOTAL 0.94 ng/mL
[2017-01-21 18:05] VITALS: BP 131/76
[2017-01-21 18:08] VITALS: Ht 154.9 cm; Wt 58.2 kg
[2017-01-21 18:37] LABS: FREE T4 1.42 ng/dL (0.76-1.46); FREE THYROXINE INDEX 2.9 ug/dL (1.4-4.5); T4(THYROXINE) 7.2 ug/dL (4.7-13.3)
[2017-01-22 06:26] VITALS: BP 104/60
[2017-01-22 06:30] LABS: BASOPHIL % 0.7 % (0-2)
[2017-01-22 06:35] LABS: CALCIUM 8.2 mg/dL (8.5-10.1); CARBON DIOXIDE 17.7 mmol/L (21-32); CHLORIDE SERUM 106 mmol/L (98-107); CREATININE SERUM 0.9 mg/dL (0.7-1.3); GFR1 > 60 mL/min; GLUCOSE SERUM 84 mg/dL (74-106); MAGNESIUM 1.5 mg/dL (1.8-2.4); PHOSPHOROUS 3.6 mg/dL (2.5-4.9); POTASSIUM SERUM 3.9 mmol/L (3.5-5.1); SODIUM SERUM 134 mmol/L (136-145)
[2017-01-22 07:20] LABS: PLATELET COUNT 68 x10^3mcL (130-400); RED CELL DISTRIBUTION WIDTH 18.1 % (11.5-14.5)
[2017-01-22 09:43] VITALS: BP 99/56
[2017-01-22 14:00] VITALS: BP 99/51
[2017-01-22 18:00] VITALS: BP 110/63
[2017-01-22 20:40] VITALS: BP 104/63
[2017-01-23 05:41] VITALS: BP 92/45
[2017-01-23 09:15] VITALS: BP 86/46
[2017-01-23 10:42] VITALS: BP 86/46
[2017-01-23 10:54] VITALS: BP 104/62
[2017-01-23 10:59] VITALS: BP 104/62
== END 2017-01-23 12:21 | disposition home or self-care (01) | DRG 279 ==
LOC: ED 14:31 → DU 16:59 → MU 01-23 11:22
PROVIDERS: Emergency Medicine; ADMIT Family Medicine
DX: K72.90 Hepatic failure, unspecified without coma (principal); N17.0 Acute kidney failure with tubular necrosis; E43 Unspecified severe protein-calorie malnutrition; K70.31 Alcoholic cirrhosis of liver with ascites; I10 Essential (primary) hypertension; E80.6 Other disorders of bilirubin metabolism; R00.1 Bradycardia, unspecified; E87.1 Hypo-osmolality and hyponatremia; Z68.24 Body mass index [BMI] 24.0-24.9, adult; Z79.899 Other long term (current) drug therapy; Z91.14 Patient's other noncompliance with medication regimen
CPT/HCPCS: 82962; 83880; 84439; G0480; J3475; J7030; Q0092

== ENCOUNTER 2017-02-08 00:12 | Inpatient (IN) | payer OTHER ==
[~2017-02-08] VITALS: Ht 154.9 cm; Wt 54.0 kg
[2017-02-08 02:54] LABS: BASOPHIL % 3.2 % (0-2); PLATELET COUNT 79 x10^3mcL (130-400); RED CELL DISTRIBUTION WIDTH 16.3 % (11.5-14.5)
[2017-02-08 02:58] LABS: CALCIUM 8.2 mg/dL (8.5-10.1); CARBON DIOXIDE 21.2 mmol/L (21-32); CREATININE SERUM 1.6 mg/dL (0.7-1.3); POTASSIUM SERUM 5.4 mmol/L (3.5-5.1)
[2017-02-08 03:03] LABS: ALBUMIN 2.1 g/dL (3.4-5.0); TOTAL PROTEIN, SERUM 6.3 g/dL (6.4-8.2)
[2017-02-08] MEDS ORDERED: IBUPROFEN400 MG PO (04:55)
[2017-02-08] MEDS ORDERED: MECLIZINE HYDRO25 M1 PO (04:55)
[2017-02-08 05:58] VITALS: BP 118/70
[2017-02-08 06:24] LABS: CHOLESTEROL/HDL RATIO 3.3; MAGNESIUM 1.7 mg/dL (1.8-2.4); PHOSPHOROUS 4.3 mg/dL (2.5-4.9)
[2017-02-08 06:29] LABS: T3 TOTAL 0.75 ng/mL
[2017-02-08 06:35] VITALS: BP 113/51
[2017-02-08 06:35] LABS: FREE T4 1.37 ng/dL (0.76-1.46); FREE THYROXINE INDEX 2.5 ug/dL (1.4-4.5); T4(THYROXINE) 6.2 ug/dL (4.7-13.3)
[2017-02-08 10:05] VITALS: BP 105/60
[2017-02-08 13:49] VITALS: BP 95/52
[2017-02-08 14:24] LABS: microscopic required? NO
[2017-02-08 14:41] LABS: urine erythrocyte NEGATIVE (NEGATIVE)
[2017-02-08 14:50] LABS: AMPHETAMINE QUAL UR NONE DETECTED (NEG <=1000)
[2017-02-08 18:35] VITALS: BP 103/58
[2017-02-08 22:13] VITALS: BP 92/55
[2017-02-09 06:05] VITALS: BP 99/54
[2017-02-09 07:26] LABS: BASOPHIL % 1.2 % (0-2)
[2017-02-09 07:56] LABS: PLATELET COUNT 74 x10^3mcL (130-400); RED CELL DISTRIBUTION WIDTH 17.6 % (11.5-14.5)
[2017-02-09 09:19] VITALS: BP 102/61
[2017-02-09 11:21] LABS: CALCIUM 7.9 mg/dL (8.5-10.1); CARBON DIOXIDE 15.4 mmol/L (21-32); CREATININE SERUM 1.6 mg/dL (0.7-1.3); MAGNESIUM 1.5 mg/dL (1.8-2.4); POTASSIUM SERUM 4.8 mmol/L (3.5-5.1)
[2017-02-09 13:23] VITALS: BP 110/68
[2017-02-09 17:35] VITALS: BP 103/59
[2017-02-09 20:53] VITALS: BP 106/59
[2017-02-10 05:48] VITALS: BP 91/52
[2017-02-10 07:26] LABS: CALCIUM 8.2 mg/dL (8.5-10.1); CARBON DIOXIDE 20.2 mmol/L (21-32); CREATININE SERUM 1.5 mg/dL (0.7-1.3); PHOSPHOROUS 3.5 mg/dL (2.5-4.9); POTASSIUM SERUM 4.1 mmol/L (3.5-5.1)
[2017-02-10 09:00] LABS: BASOPHIL % 1.7 % (0-2)
[2017-02-10 09:03] LABS: PLATELET COUNT 72 x10^3mcL (130-400); RED CELL DISTRIBUTION WIDTH 16.3 % (11.5-14.5)
[2017-02-10 09:17] VITALS: BP 97/57
[2017-02-10 10:00] VITALS: BP 93/58
[2017-02-10] MEDS ORDERED: LAC15L PO (12:36)
[2017-02-10 13:06] VITALS: BP 93/58
[2017-02-10 14:02] VITALS: BP 112/64; BP 95/84
[2017-02-10 14:26] VITALS: BP 97/55
== END 2017-02-10 14:55 | disposition home or self-care (01) | DRG 279 ==
LOC: ED 00:12 → DU 04:59 → MU 02-10 12:33
PROVIDERS: Emergency Medicine; ADMIT Family Medicine
DX: K72.90 Hepatic failure, unspecified without coma (principal); N17.0 Acute kidney failure with tubular necrosis; K76.7 Hepatorenal syndrome; E43 Unspecified severe protein-calorie malnutrition; E87.1 Hypo-osmolality and hyponatremia; E87.5 Hyperkalemia; I10 Essential (primary) hypertension; D63.8 Anemia in other chronic diseases classified elsewhere; F10.20 Alcohol dependence, uncomplicated; Y90.9 Presence of alcohol in blood, level not specified; Z68.22 Body mass index [BMI] 22.0-22.9, adult; E83.42 Hypomagnesemia; K70.31 Alcoholic cirrhosis of liver with ascites
CPT/HCPCS: 83880; 84439; J1885; J1940; J2405; J3475; J7030; J8597; Q0092

== ENCOUNTER 2017-02-15 11:13 | Emergency (ER) | payer OTHER ==
[~2017-02-15] VITALS: Ht 154.9 cm; Wt 55.3 kg
[~2017-02-15 11:13] MED LIST changes: +IBUPROFEN400 MG PO; +MECLIZINE HYDRO25 M1 PO
[2017-02-15 14:05] LABS: BASOPHIL % 0.9 % (0-2)
[2017-02-15 14:09] LABS: PLATELET COUNT 74 x10^3mcL (130-400); RED CELL DISTRIBUTION WIDTH 17.3 % (11.5-14.5)
[2017-02-15 14:39] LABS: AMYLASE 96 U/L (25-115); LIPASE 273 IU/L (73-393)
[2017-02-15 14:43] LABS: T4(THYROXINE) 4.5 ug/dL (4.7-13.3)
[2017-02-15 16:40] VITALS: BP 98/59
== END 2017-02-15 16:40 | disposition home or self-care (01) ==
LOC: ED 11:13
PROVIDERS: Emergency Medicine
DX: K72.90 Hepatic failure, unspecified without coma (principal); K70.30 Alcoholic cirrhosis of liver without ascites; D64.9 Anemia, unspecified; K92.1 Melena; I10 Essential (primary) hypertension; F17.210 Nicotine dependence, cigarettes, uncomplicated
CPT/HCPCS: 83880; G0480; J3490; J7030

== ENCOUNTER 2017-02-26 06:44 | Inpatient (IN) | payer OTHER ==
[~2017-02-26] VITALS: Ht 154.9 cm; Wt 47.8 kg
[2017-02-26 08:30] LABS: BASOPHIL % 0.5 % (0-2)
[2017-02-26 08:31] LABS: PLATELET COUNT 74 x10^3mcL (130-400); POTASSIUM SERUM 4.7 mmol/L (3.5-5.1)
[2017-02-26 08:49] LABS: ALBUMIN 2.3 g/dL (3.4-5.0); CALCIUM 7.8 mg/dL (8.5-10.1); CARBON DIOXIDE 18.8 mmol/L (21-32); CREATININE SERUM 3.2 mg/dL (0.7-1.3); TOTAL PROTEIN, SERUM 7.1 g/dL (6.4-8.2)
[2017-02-26 08:50] LABS: BILIRUBIN TOTAL 2.01 mg/dL (0.20-1.00)
[2017-02-26 10:09] LABS: CHOLESTEROL/HDL RATIO 2.4; MAGNESIUM 2.2 mg/dL (1.8-2.4); PHOSPHOROUS 4.3 mg/dL (2.5-4.9)
[2017-02-26 10:22] LABS: FREE T4 1.11 ng/dL (0.76-1.46); FREE THYROXINE INDEX 1.7 ug/dL (1.4-4.5); T4(THYROXINE) 4.7 ug/dL (4.7-13.3)
[2017-02-26 11:16] LABS: microscopic required? NO
[2017-02-26 11:40] LABS: urine erythrocyte NEGATIVE (NEGATIVE)
[2017-02-26 14:44] LABS: T3 TOTAL 0.59 ng/mL
[2017-02-26 16:06] LABS: CALCIUM 8.1 mg/dL (8.5-10.1); CARBON DIOXIDE 20.2 mmol/L (21-32); CREATININE SERUM 2.8 mg/dL (0.7-1.3)
[2017-02-26 20:04] VITALS: BP 120/70
[2017-02-27 05:23] VITALS: BP 168/84
[2017-02-27 05:25] VITALS: BP 93/46
[2017-02-27 08:00] LABS: BASOPHIL % 0.7 % (0-2)
[2017-02-27 08:03] LABS: PLATELET COUNT 67 x10^3mcL (130-400); RED CELL DISTRIBUTION WIDTH 17.2 % (11.5-14.5)
[2017-02-27 08:14] LABS: rbc morphology (normal/abnorm) ABNORMAL (NORMAL)
[2017-02-27 08:23] LABS: BILIRUBIN TOTAL 2.27 mg/dL (0.20-1.00); CALCIUM 7.4 mg/dL (8.5-10.1); CARBON DIOXIDE 19.6 mmol/L (21-32); CREATININE SERUM 2.2 mg/dL (0.7-1.3); POTASSIUM SERUM 4.2 mmol/L (3.5-5.1)
[2017-02-27 08:24] LABS: ALBUMIN 1.8 g/dL (3.4-5.0); TOTAL PROTEIN, SERUM 5.5 g/dL (6.4-8.2)
[2017-02-27 09:59] VITALS: BP 99/61
[2017-02-27 17:24] VITALS: BP 106/63
[2017-02-27 21:27] VITALS: BP 107/62
[2017-02-28 05:45] VITALS: BP 104/54
[2017-02-28 06:36] LABS: CALCIUM 7.6 mg/dL (8.5-10.1); CARBON DIOXIDE 19.1 mmol/L (21-32); CREATININE SERUM 1.5 mg/dL (0.7-1.3); POTASSIUM SERUM 4.2 mmol/L (3.5-5.1)
[2017-02-28 06:52] LABS: BASOPHIL % 0.6 % (0-2); PLATELET COUNT 65 x10^3mcL (130-400); RED CELL DISTRIBUTION WIDTH 17.1 % (11.5-14.5)
[2017-02-28 08:20] VITALS: BP 108/63
[2017-02-28 17:27] VITALS: BP 108/63
[2017-02-28 21:52] VITALS: BP 111/67
[2017-03-01 05:41] VITALS: BP 94/49
[2017-03-01 06:34] LABS: CALCIUM 7.8 mg/dL (8.5-10.1); CARBON DIOXIDE 19.3 mmol/L (21-32); CREATININE SERUM 1.8 mg/dL (0.7-1.3); POTASSIUM SERUM 4.4 mmol/L (3.5-5.1)
[2017-03-01 06:36] LABS: BASOPHIL % 0.8 % (0-2); PLATELET COUNT 67 x10^3mcL (130-400); RED CELL DISTRIBUTION WIDTH 17.8 % (11.5-14.5)
[2017-03-01 09:57] VITALS: BP 110/65
[2017-03-01 12:10] VITALS: BP 110/65
== END 2017-03-01 14:00 | disposition home or self-care (01) | DRG 280 ==
LOC: ED 06:44 → DU 19:04 → MU 19:04 → DU 19:39 → MU 02-27 10:59
PROVIDERS: Emergency Medicine; ADMIT Family Medicine
DX: K70.30 Alcoholic cirrhosis of liver without ascites (principal); N17.0 Acute kidney failure with tubular necrosis; E43 Unspecified severe protein-calorie malnutrition; D69.59 Other secondary thrombocytopenia; D69.6 Thrombocytopenia, unspecified; E87.8 Other disorders of electrolyte and fluid balance, not elsewhere classified; E87.1 Hypo-osmolality and hyponatremia; D64.9 Anemia, unspecified; D63.8 Anemia in other chronic diseases classified elsewhere; I10 Essential (primary) hypertension; K72.90 Hepatic failure, unspecified without coma; F10.10 Alcohol abuse, uncomplicated; Y90.9 Presence of alcohol in blood, level not specified; Z91.19 Patient's noncompliance with other medical treatment and regimen
CPT/HCPCS: 83880; 84439; G0480; J2405; J2916; J7030; J7040; Q0092

== ENCOUNTER 2017-06-20 21:52 | Inpatient (IN) | payer OTHER ==
[~2017-06-20] VITALS: Ht 154.9 cm; Wt 57.6 kg
[2017-06-20] MEDS ORDERED: ZOF4 PO (22:13)
[2017-06-20] MEDS ORDERED: LASIX40 MG PO (22:13)
[2017-06-20] MEDS ORDERED: MIRTAZAPINE15 M2 PO (22:14)
[2017-06-20] MEDS ORDERED: ALDACTONE100 MG PO (22:14)
[2017-06-20] MEDS ORDERED: NEU300 PO (22:14)
--- NOTE | 2017-06-20 22:30 | NUR ---
PATIENT SEEN WITH COMPLAINT OF BEING SHAKE. HISTORY OF LIVER CIRROSOS. SEEN WITH TREMORS OF THE UPPER EXTREMITIED. SKIN AND EYE IS JAUNDICE.SEEN BY MD. BLOOD WAS DRAWN.
[2017-06-20 22:33] LABS: BASOPHIL % 0.7 % (0-2)
[2017-06-20 22:36] LABS: CALCIUM 8.8 mg/dL (8.5-10.1); CARBON DIOXIDE 17.1 mmol/L (21-32); CREATININE SERUM 3.4 mg/dL (0.7-1.3); PLATELET COUNT 75 x10^3mcL (130-400); POTASSIUM SERUM 4.2 mmol/L (3.5-5.1)
[2017-06-20 22:44] LABS: ALBUMIN 2.2 g/dL (3.4-5.0)
--- NOTE | 2017-06-20 23:16 | NUR ---
PATIENT MEDICATED WITH LACTULOSE FOR AMMONIA LEVEL OF 83 MG/DL
--- NOTE | 2017-06-20 23:38 | NUR ---
PATIENT IS ADMITTED . MRSA SWAB WAS DONE. MED REC WAS DONE. SALINE LOCK INSERTED. PATIENT DENIES ANY PAIN AT THIS TIME.
--- NOTE | 2017-06-20 23:53 | NUR ---
REPORT WAS GIVEN TO JEANNETTE. PATIENT TRANSPORTED TO ROOM 222B
[2017-06-21] VITALS (11 sets, daily range): BP systolic 102–154; BP diastolic 57–65; Ht 154.9 cm; Wt 57.6 kg
--- NOTE | 2017-06-21 00:04 | NUR ---
RECEIVED PT FROM ED VIA OmiroERANNIE, CAME IN DUE TO SHAKINESS AND HIGH AMMONIA LEVEL. AAOX4. DENIES HEADACHE/DIZZINESS. NO SOB NOTED. DENIES CHEST PAIN/PRESSURE, SR ON THE MONITOR. DENIES ABDOMINAL PAIN/NAUSEA/VOMITING. C/O WATERY STOOLS, HAD 4 EPISODES OCCUPATIONAL THERAPIST'S ASSISTANT. JAUNDICE. IV SITE PATENT AND INTACT. SIDE RAILS UPX2. CALL LIGHT ON REACH. PRIMARY NURSE JEANNETTE AT BEDSIDE FOR CONTINUITY OF CARE.
--- NOTE | 2017-06-21 00:05 | NUR ---
PT A/O X4, ENGLISH SPEAKING WITH AT BEDSIDE. TELE #3, NSR, DENIES CHEST PAIN. PULSES PALPABLE, NO EDEMA PRESENT. LUNG SOUNDS CTA, BREATHING FREELY ON RA. BOWEL TONES ACTIVE, COMPLAINS OF HAVING WATERY STOOL X4. DENIES PAIN UPON URINATION. AMBULATORY. SKIN IS INTACT. DENIES PAIN AT THIS TIME. SALINE LOCK TO LFA. BED IN LOWEST SETTING, SIDE RAILS UP X2, CALL LIGHT WITHIN REACH. ORIENTED PT TO ROOM AND SURROUNDINGS. WILL CONTINUE TO MONITOR.
--- NOTE | 2017-06-21 02:00 | NUR ---
PT ASLEEP AT THIS TIME WITH AT BEDSIDE. PT IS EASILY AROUSABLE, BREATHING EVEN AND UNLABORED. NO RESP DISTRESS NOTED. INSTRUCTED PT NOT TO EAT OR DRINK ANYTHING, PT IS NPO PER DR ORDERS. IVF INFUSING WELL. PT DENIES PAIN. WILL CONTINUE TO MONITOR.
[2017-06-21 02:05] LABS: MAGNESIUM 1.7 mg/dL (1.8-2.4); PHOSPHOROUS 5.6 mg/dL (2.5-4.9)
[2017-06-21 02:06] LABS: CHOLESTEROL/HDL RATIO 2.3
[2017-06-21 02:09] LABS: FREE T4 0.99 ng/dL (0.76-1.46); FREE THYROXINE INDEX 1.6 ug/dL (1.4-4.5); T4(THYROXINE) 4.8 ug/dL (4.7-13.3)
[2017-06-21 02:15] LABS: T3 TOTAL 0.46 ng/mL
--- NOTE | 2017-06-21 06:14 | NUR ---
PT SLEPT WELL THROUGHOUT THE NIGHT. PT AWAKE AT THIS TIME WITH FAMILY AT BEDSIDE. NO RESP DISTRESS NOTED, PT DENIES PAIN. IVF INFUSING WELL TO LFA. CALL LIGHT WITHIN REACH. WILL ENDORSE CARE TO AM NURSE.
--- NOTE | 2017-06-21 07:45 | NUR ---
RECEIVED THE PATIENT SLEEPING IN BED, BUT AROUSABLE BY VERBAL STIMULUS AND ORIENTED TO PERSON, PLACE AND TIME. PATIENT DENIED SHORTNESS OF BREATH, NAUSEA/VOMITING OR PAIN AT THIS TIME. IVF NS VIA H/L TO LFA. TELE # 3 READS SINUS RHYTHMS. CALL LIGHT WITHIN REACH. SIDE RAILS UP X3. THE AT BEDSIDE.
--- NOTE | 2017-06-21 09:35 | NUR ---
DR. PHOENIX AND THE TEAM WERE MAKING ROUND TO SEE THE PATIENT. THE CARE PLAN WAS EXPLAINED TO THE PATIENT IN [place] VIA MASH FILTER PRESS OPERATOR, DR. REYES-RESIDENT; THE PATIENT VERBALIZED UNDERSTANDING.
[2017-06-21 11:13] LABS: CALCIUM 8.3 mg/dL (8.5-10.1); CARBON DIOXIDE 17.4 mmol/L (21-32); CREATININE SERUM 3.1 mg/dL (0.7-1.3); POTASSIUM SERUM 4.8 mmol/L (3.5-5.1)
--- NOTE | 2017-06-21 15:05 | NUR ---
DR. CASSIDY-RESIDENT WAS MADE AWARE OF THE RESULT OF US PLEURAL EFFUSION EVAL.
--- NOTE | 2017-06-21 15:44 | NUR ---
RADIOLOGIST, RAD NURSE AND US TECH ARE AT BEDSIDE NOW TALKING TO THE PATIENT ABOUT THORACENTESIS PROCEDURE.
--- NOTE | 2017-06-21 16:00 | NUR ---
THE PATIENT IS HAVING THORACENTESIS AT BEDSIDE.
--- NOTE | 2017-06-21 16:03 | NUR ---
THORACENTESIS COMPLETED WITH 1800 ML OF OUTPUT. THE SPECIMEN WAS SENT TO THE LAB BY DEBORA FUENTES RN. THE PATIENT AWAKE AND ORIENTED TO PERSON, PLACE AND TIME. WILL MONITOR AND CHECK VS ORDERED.
[2017-06-21 16:22] LABS: microscopic required? NO
[2017-06-21 16:41] LABS: urine erythrocyte NEGATIVE (NEGATIVE)
--- NOTE | 2017-06-21 16:50 | NUR ---
Initial Nutrition Assessment Dx: Hyperammonia, Chronic renal failure disease PMHx: Liver cirrhosis,Alcohol abuse (remote),HTN PSHx:None Labs: (06/21) Na:135L, BUN:25H, Cr:3.1H, Ca:8.3L, Ammonia:86H (06/20) Phos:5.6H, Amylase:140H,H/H:8.1/24L Meds: Aldactone, Colce, Ferrous sulfate, Lactulose, Lasix, Nephrovite, Phoslo, Protonix, NS IV, Zofran Diet:Regular, low ammonia PO Intake:N/A pt just advanced to PO diet for dinner Ht: 61in, 5'1" Wt: 119#, 54.06kg BMI: 22.5kg/m2 (normal weight) IBW: 112#,51kg %IBW: 106% UBW:unable to obtain Weight hx: 140# (02/2017) Age:89 y/o male Food Allergies:NKFA per last RD assessment Skin: intact; jaundiced Billy:21 Edema:None GI:active bowel sounds Last BM:06/21 loose due to pt on lactulose Nutriton consult: please provide low ammonia diet Pt admitted with 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 Per progress note 06/21, Per nursing no acute events overnight. CXR showed large right pleural effusion; will get US evaluation for need for thoracentesis. Continue treatment for hepatic encephalopathy with Lactulose 30mg TID and Xifaxin 550mg BID. Pt expressed understanding and agreement with plan. During visit, pt was asleep. Spoke to Dr. Simmons who reports pt with no ascites, but had thoracentesis with 1800ml output today. Per Dr. Simmons, the plan right now is to lower pt's ammonia levels. Recommended change diet to Regular with 50g protein and to discontinue Nephrovite due to pt not on HD yet and doctor said she will inout orders. Problem with: N: No V:No D:No C:No Problems with: Chewing: No Swallowing:No per H&P Current appetite: Good Recent wt change:-21# within 4 months %wt change:15% severe Vitamin/Supplement use: Ferrous sulfate, lactulose per H&P Special diet at home:Regular per Physical activity: unable to obtain Education: unable to provide due to pt sleeping. Estimated Nutritional Needs Based on ideal body weight 51kg Energy: 1530-1785kcal/d (30-35kcal/kg for liver cirrhosis) Protein: 31-61g/d (0.8g-1.2/kg for elevated ammonia levels) Fluid: 1530ml/day (30ml/kg for maintenance) or per doctor Nutrition Diagnosis 1. Altered nutrition labs related to liver dysfunction as evidenced by elevated ammonia:86. Intervention 1. Recommend Regular diet with 50g protein restriction due to pt with elevated ammonia levels. 2. Recommend D/C Nephrovite due to pt not on HD. Monitor/Evaluate Goal: PO intake at least 75% of estimated needs Monitor: PO intake, Labs, GI function F/U in 3-5 days as moderate risk:06/24-
[2017-06-21 16:51] LABS: AMPHETAMINE QUAL UR NONE DETECTED (NEG <=1000)
--- NOTE | 2017-06-21 16:51 | NUR ---
1. Recommend Regular diet with 50g protein restriction due to pt with elevated ammonia levels. 2. Recommend D/C Nephrovite due to pt not on HD.
--- NOTE | 2017-06-21 18:24 | NUR ---
THE PATIENT AMBULATED AND USED BRP DURING THE SHIFT. PATIENT STATED FEELING BETTER AFTER THORACENTESIS; THE SITE (RIGHT SIDE OF THE BACK) WITH BANDAID INTACT. THE PATIENT TOLERATED WELL WITH REGULAR DIET FOR DINNER.
[2017-06-21 18:53] LABS: APPEARANCE FLUID BLOODY; COLOR FLUID RED; SOURCE FLUID THORACENTESIS
[2017-06-21 19:01] LABS: LYMPHOCYTE FLUID 58 %; MONOCYTE FLUID 9 %; RBC FLUID 4925 /cumm; WBC FLUID 500 /cumm
--- NOTE | 2017-06-21 20:08 | NUR ---
PT ALERT AND ORIENTED X 4, FAMILY MEMBER BY BEDSIDE. NO SIGNS OF CONFUSION NOTED. MILD TREMORS PRESENT DURING PA. PT DENIES ANY DISCOMFORT AT THIS TIME. IV SITE TO LFA, PATENT AND INTACT. IV FLUID INFUSING PER MD ORDER. PT APPEARS TO BE WEAK BUT IS AMBULATORY. WAS INSTRUCTED TO USE CALL LIGHT PRIOR TO AMBULATION FOR ASSISTANCE. PT CALM AND COOPERATIVE WITH CARE. PT DENIES PAIN AT THIS TIME. ALL SAFETY MEASURES ENSURED. CALL LIGHT AND PERSONAL BELONGINGS WITHIN REACH. WILL CONTINUE TO MONITOR.
[2017-06-22 05:02] VITALS: BP 108/59
--- NOTE | 2017-06-22 05:10 | NUR ---
PT RESTED THROUGHOUT NIGHT, NO DISTRESS NOTED. NO C/O PAIN OR DISCOMFORT. DENIED SOB. PT VITALS STABLE THROUGHOUT NIGHT. ALL NEEDS MET BY STAFF. SAFETY AND COMFORT MEASURES WERE MAINTAINED. BED IN LOWEST POSITION, CALL LIGHT WITHIN REACH. WILL CONTINUE TO MONITOR.
--- NOTE | 2017-06-22 07:25 | NUR ---
RECEIVED PT. IN BED A/A/O X3. NO SOB, NO N/V NOTED. DENIES ANY PAIN AT THIS TIME. NS RUNNING AT 100 CC/HR. VIA IV H/L AT L FA. SCD TO BLE MAINTAINED. BED IN LOW POS., CALL LIGHT WITHIN REACH. SIDE RAILS UP X3.
[2017-06-22 09:38] VITALS: BP 102/58
--- NOTE | 2017-06-22 12:37 | NUR ---
DR. ABURTO, THE RESIDENTS, CHARGE NURSE, AND ATTENDING NURSE AT BEDSIDE. CAREPLAN DISCUSSED WITH PT. ALL QUESTIONS ANSWERED.
[2017-06-22 14:02] VITALS: BP 111/61
--- NOTE | 2017-06-22 15:28 | NUR ---
TELE. MONITOR #3 REMOVED AND RETURNED TO TELE. MONITOR STATION PER PHYSICIAN'S ORDER. PT. IS MED-SURG STATUS NOW.
--- NOTE | 2017-06-22 16:47 | NUR ---
REMAINS IN STABLE CONDITION AT THIS TIME. NO ACUTE DISTRESS NOTED.
[2017-06-22 16:50] VITALS: BP 128/70
--- NOTE | 2017-06-22 18:15 | NUR ---
TEMP.= 101. TYLENOL 650MG PO GIVEN. COOLING MEASURES APPLIED.
--- NOTE | 2017-06-22 19:40 | NUR ---
PT A/0 X3, PT RESTING AT THIS TIME. FAMILY AT BEDSIDE. NO DISTRESS NOTED. PT C/O R SIDED LOWER BACK PAIN 08/21. ALL SAFETY MEASURES ENSURED. CALL LIGHT AND PERSONAL BELONGINGS WITHIN REACH. WILL CONTINUE TO MONITOR.
[2017-06-22 21:10] VITALS: BP 94/64
[2017-06-22 21:23] VITALS: BP 114/69
--- NOTE | 2017-06-22 21:23 | NUR ---
TEMP 101.3 AT THIS TIME. COOLING MEASURES INITIATED. DR BUENROSTRO AWARE, TORADOL ORDERED AT THIS TIME.
[2017-06-23 04:38] VITALS: BP 112/61
--- NOTE | 2017-06-23 05:43 | NUR ---
PT RESTED COMFORTABLY THROUGH THE NIGHT. PT WAS MEDICATED FOR PAIN AND TEMP WITH TORADOL IVP X1 PER MD ORDER. NO FURTHER C/O THROUGHOUT NIGHT. NO S/SX OF SOB OR DIFFICULTY BREATHING. NO SIGNS OF DISTRESS OR DISCOMFORT OBSERVED. PT TEMP SEEN TO TREND DOWN THROUGH THE NIGHT 101.3, 99.7, 99.2. COOLING MEASURES WERE INITIATED. IV FLUIDS CONTINUING TO INFUSE PER MD ORDER IN [facility]. REMAINS PATENT AND INTACT. ALL SAFETY MEASURES MAINTAINED. WILL CONTINUE TO MONITOR.
[2017-06-23 06:57] LABS: BASOPHIL % 0.2 % (0-2)
[2017-06-23 07:01] LABS: PLATELET COUNT 71 x10^3mcL (130-400); RED CELL DISTRIBUTION WIDTH 19.9 % (11.5-14.5)
--- NOTE | 2017-06-23 07:02 | NUR ---
REASSESSED PT TEMP AT 0650 100.4, TYLENOL ADMINISTERD ORDERED. WILL PASS ON TO DAY SHIFT NURSE.
[2017-06-23 07:14] LABS: CALCIUM 8.4 mg/dL (8.5-10.1); CARBON DIOXIDE 13.9 mmol/L (21-32); CREATININE SERUM 3.2 mg/dL (0.7-1.3); PHOSPHOROUS 4.4 mg/dL (2.5-4.9); POTASSIUM SERUM 4.5 mmol/L (3.5-5.1)
--- NOTE | 2017-06-23 07:25 | NUR ---
RECEIVED PT. IN BED A/A/O X3. NO SOB, NO N/V NOTED. DENIES ANY PAIN AT THIS TIME. NS RUNNING AT 10 CC/HR. VIA IV H/L AT L FA. SCD TO BLE MAINTAINED. BED IN LOW POS., CALL LIGHT WITHIN REACH. SIDE RAILS UP X3.
[2017-06-23 09:15] VITALS: BP 103/59
--- NOTE | 2017-06-23 09:45 | NUR ---
DR. ABURTO, THE RESIDENTS, CHARGE NURSE, AND ATTENDING NURSE AT BEDSIDE. CAREPLAN DISCUSSED WITH PT. ALL QUESTIONS ANSWERED.
--- NOTE | 2017-06-23 09:52 | NUR ---
CALLED AND REPORTED LACTIC ACID LEVEL TO DR. CASSIDY (DO RESIDENT). ORDER TO REPEAT LACTIC ACID LEVEL RECEIVED.
--- NOTE | 2017-06-23 12:20 | NUR ---
CALLED AND REPORTED REPEATED LACTIC ACID LEVEL (2.1) TO DR. CASSIDY. NO FURTHER ORDER RECEIVED AT THIS TIME.
[2017-06-23 17:24] VITALS: BP 97/51
--- NOTE | 2017-06-23 17:39 | NUR ---
REMAINS IN STABLE CONDITION AT THIS TIME. NO ACUTE DISTRESS NOTED.
--- NOTE | 2017-06-23 19:50 | NUR ---
REC'D PT FROM DAY NURSE. PT AAOX4, SPEECH CLEAR, FOLLOWS COMMANDS. NO SIGNS OF DISTRESS NOTED. BREATHING EVEN/UNLABORED ON RA. MED SURG PT, NO TELE. DENIES CP, DIZZINESS, OR PALPITATIONS. NO EDEMA NOTED. ABD SOFT/FLAT. BOWEL SOUNDS ACTIVE. PT REPORTS MILD PAIN/TENDERNESS TO RLQ 2/10, TOLERABLE. HAVING LOOSE STOOLS D/T LACTULOSE. VOIDING FREELY. AMBULATORY. SKIN INTACT. IV TO LFA PATENT AND INFUSING, SITE WNL. CALL LIGHT WITHIN REACH, BED AT LOWEST POSITION. WILL CONTINUE TO MONITOR.
[2017-06-23 20:40] VITALS: BP 111/61
--- NOTE | 2017-06-23 23:45 | NUR ---
SPOKE TO DR. BUENROSTRO REGARDING PT'S REGULAR DIET. ASKED IF HE WOULD LIKE TO CHANGE IT TO RENAL D/T RENAL DISEASE. RESIDENT STATED THE TEAM WILL REEVALUATE IT IN THE AM. NO CHANGES IN ORDERS AT THIS TIME.
--- NOTE | 2017-06-24 00:03 | NUR ---
PT RESTING IN BED WITH EYES CLOSED. LAYING ON R SIDE. NO SIGNS OF DISTRESS NOTED. BREATHING EVEN/UNLABORED ON RA. CALL LIGHT WITHIN REACH, BED AT LOWEST POSITION. WILL CONTINUE TO MONITOR.
--- NOTE | 2017-06-24 01:10 | NUR ---
BREATHING TREATMENTS ADMINISTERED BY RT. PT SOUNDS MUCH LESS CONGESTED. TRIED TO GET OUT OF BED ONE TIME. POSITIONED PT BACK IN BED. CURRENTLY CALM AND LAYING ON L SIDE. WILL CONTINUE TO MONITOR.
[2017-06-24 05:23] VITALS: BP 103/54
[2017-06-24 06:35] LABS: CALCIUM 8.1 mg/dL (8.5-10.1); CARBON DIOXIDE 16.1 mmol/L (21-32); CREATININE SERUM 3.8 mg/dL (0.7-1.3); MAGNESIUM 2.3 mg/dL (1.8-2.4)
--- NOTE | 2017-06-24 06:43 | NUR ---
PT RESTING IN BED WITH EYES CLOSED. AROUSES EASILY. DUE MEDS GIVEN. NO COMPLAINTS AT THIS TIME. DENIES PAIN OR DISCOMFORT. SLEPT THROUGHOUT MOST OF THE NIGHT. HAD BM X1. NO SIGNIFICANT CHANGES DURING SHIFT. CALL LIGHT WITHIN REACH, BED AT LOWEST POSITION. WILL ENDORSE TO DAY NURSE.
[2017-06-24 06:44] LABS: BASOPHIL % 0.2 % (0-2)
--- NOTE | 2017-06-24 07:25 | NUR ---
RECEIVED REPORT FROM CARRIE ALEX AT THIS TIME. PATIENT IS AWAKE, ALERT AND O X 4. ON ROOM AIR, NO DISTRESS NOTED. LUNG SOUNDS CLEAR IN UPPER LOBES DIMINISHED IN RLL. PULSES MODERATE. BOWEL SOUNDS ACTIVE. DENIES URINARY DIFFICULTIES. DENIES ANY PAIN. IV TO LFA IN PLACE. SCDS AT THE BEDSIDE. CALL LIGHT WITH IN REACH.
[2017-06-24 08:22] LABS: PLATELET COUNT 51 x10^3mcL (130-400); RED CELL DISTRIBUTION WIDTH 20.5 % (11.5-14.5)
--- NOTE | 2017-06-24 08:47 | NUR ---
ROUNDS MADE AT THIS TIME. DR. SANCHEZ, RESIDENT TEAM, SENIOR STAFF CONSULTANT AND PRIMARY RN PRESENT. PLAN OF CARE IS DISCUSSED. QUESTIONS AND CONCERNS ADDRESSED.
[2017-06-24 09:47] VITALS: BP 99/55
--- NOTE | 2017-06-24 10:33 | NUR ---
NOTIFIED DR. CASSIDY NA 131, BUN 34, CREAT 3.8, CA 8.1, PHOS 5.0, WBC 16.7, HG 7.0, HCT 21.
--- NOTE | 2017-06-24 13:00 | NUR ---
IN TO SEE PATIENT AND ADMINISTER 100ML OF ALBUMIN ORDERED AT THIS TIME (SEE EMAR). CHANCE IS RESTING IN BED NO DISTRESS NOTED, HE DENIES BREATHING DIFFICULTY BUT STATES HE IS HAVING A COUGH. WILL CONTINUE TO MONITOR.
[2017-06-24] MEDS ORDERED: PROA PO (14:36)
[2017-06-24 14:39] VITALS: BP 99/55
--- NOTE | 2017-06-24 15:45 | NUR ---
DISCHARGE INSTRUCTIONS GIVEN TO PATIENT AT THIS TIME. PATIENT VERBALIZES UNDERSTANDING. IV REMOVED CATH INTACT. ID BANDS REMOVED.
== END 2017-06-24 16:00 | disposition home or self-care (01) | DRG 279 ==
LOC: ED 21:52 → DU 23:01 → MU 06-22 14:56
PROVIDERS: Emergency Medicine Emergency Medical Services; Student in an Organized Health Care Education/Training Program; ADMIT Family Medicine
DX: K72.90 Hepatic failure, unspecified without coma (principal); N17.0 Acute kidney failure with tubular necrosis; E43 Unspecified severe protein-calorie malnutrition; J90 Pleural effusion, not elsewhere classified; N18.4 Chronic kidney disease, stage 4 (severe); R65.10 Systemic inflammatory response syndrome (SIRS) of non-infectious origin without acute organ dysfunction; E87.1 Hypo-osmolality and hyponatremia; K70.30 Alcoholic cirrhosis of liver without ascites; Z68.22 Body mass index [BMI] 22.0-22.9, adult; I12.9 Hypertensive chronic kidney disease with stage 1 through stage 4 chronic kidney disease, or unspecified chronic kidney disease; D63.8 Anemia in other chronic diseases classified elsewhere; J44.9 Chronic obstructive pulmonary disease, unspecified
CPT/HCPCS: 32555; 83880; 84439; 94150; J1885; J2001; J2543; J3475; J3490; J7030; J8597; P9047; Q0092

== ENCOUNTER 2017-07-11 15:57 | Inpatient (IN) | payer OTHER ==
[~2017-07-11] VITALS: Ht 167.6 cm; Wt 56.7 kg
[~2017-07-11 15:57] MED LIST changes: +ALDACTONE100 MG PO; +MIRTAZAPINE15 M2 PO; +NEU300 PO; +PROA PO; +ZOF4 PO
[2017-07-11 17:34] LABS: BASOPHIL % 0.5 % (0-2)
[2017-07-11 17:35] LABS: PLATELET COUNT 96 x10^3mcL (130-400); RED CELL DISTRIBUTION WIDTH 20.1 % (11.5-14.5)
[2017-07-11 18:04] LABS: rbc morphology (normal/abnorm) ABNORMAL (NORMAL)
[2017-07-11 18:37] LABS: CALCIUM 7.1 mg/dL (8.5-10.1); CREATININE SERUM 2.8 mg/dL (0.7-1.3); POTASSIUM SERUM 4.6 mmol/L (3.5-5.1)
[2017-07-11 18:41] LABS: BILIRUBIN TOTAL 1.8 mg/dL (0.20-1.00)
[2017-07-11 18:42] LABS: ALBUMIN 1.4 g/dL (3.4-5.0); TOTAL PROTEIN, SERUM 4.4 g/dL (6.4-8.2)
[2017-07-11 19:35] LABS: MAGNESIUM 1.8 mg/dL (1.8-2.4); PHOSPHOROUS 4.3 mg/dL (2.5-4.9)
[2017-07-11 19:47] LABS: FREE T4 1.04 ng/dL (0.76-1.46)
[2017-07-11 19:55] LABS: FREE THYROXINE INDEX 1.7 ug/dL (1.4-4.5); T4(THYROXINE) 4.2 ug/dL (4.7-13.3)
[2017-07-11 19:56] LABS: T3 TOTAL 0.46 ng/mL
[2017-07-11 20:29] VITALS: BP 85/58
[2017-07-11 21:30] VITALS: BP 125/68
[2017-07-11 22:23] LABS: PLATELET COUNT 55 x10^3mcL (130-400); RED CELL DISTRIBUTION WIDTH 20.5 % (11.5-14.5)
[2017-07-11 22:40] VITALS: BP 71/40
[2017-07-11 22:43] VITALS: BP 119/65
[2017-07-11 23:00] VITALS: BP 119/83
[2017-07-11 23:23] LABS: ATYPICAL LYMPH 2 %; BAND NEUTROPHIL 12 % (0-10); METAMYELOCTE 7 % (0-2); MONOCYTE 7 % (0-7); MYELOCYTE 1 % (0-2); SEGMENTED NEUTROPHILS 45 % (37-75)
[2017-07-11 23:25] LABS: rbc morphology (normal/abnorm) ABNORMAL (NORMAL)
[2017-07-12] VITALS (9 sets, daily range): BP systolic 36–86; BP diastolic 24–42; Ht 167.6 cm; Wt 56.7 kg
[2017-07-12 05:57] LABS: CALCIUM 6.7 mg/dL (8.5-10.1); CARBON DIOXIDE 10.5 mmol/L (21-32); CREATININE SERUM 3.2 mg/dL (0.7-1.3)
[2017-07-12 06:12] LABS: PLATELET COUNT 33 x10^3mcL (130-400); RED CELL DISTRIBUTION WIDTH 19.9 % (11.5-14.5)
[2017-07-12 08:40] LABS: ATYPICAL LYMPH 2 %; BAND NEUTROPHIL 10 % (0-10); BASOPHIL 0 % (0-2); METAMYELOCTE 8 % (0-2); MONOCYTE 6 % (0-7); MYELOCYTE 1 % (0-2)
[2017-07-12 08:41] LABS: SEGMENTED NEUTROPHILS 46 % (37-75)
[2017-07-12 08:42] LABS: rbc morphology (normal/abnorm) ABNORMAL (NORMAL)
[2017-07-12 08:44] LABS: burr cell (echinocyte) 1+
[2017-07-12 08:45] LABS: ovalocyte/elliptocyte 1+; schistocyte (helmet cell) 1+
== END 2017-07-12 17:42 | disposition expired | DRG 253 ==
LOC: ED 15:57 → IC 18:41 → EDBEDREQSVC 18:52 → EDBEDREQ 18:52 → IC 19:03
PROVIDERS: Emergency Medicine; ADMIT Family Medicine
PROC: 5A1935Z Respiratory Ventilation, Less than 24 Consecutive Hours (ICD-10-PCS; principal; 2017-07-11)
PROC: 0BH17EZ Insertion of Endotracheal Airway into Trachea, Via Natural or Artificial Opening (ICD-10-PCS; principal; 2017-07-11)
PROC: 30233N1 Transfusion of Nonautologous Red Blood Cells into Peripheral Vein, Percutaneous Approach (ICD-10-PCS; 2017-07-11)
PROC: 30233K1 Transfusion of Nonautologous Frozen Plasma into Peripheral Vein, Percutaneous Approach (ICD-10-PCS; 2017-07-12)
DX: K66.1 Hemoperitoneum (principal); N17.0 Acute kidney failure with tubular necrosis; J96.01 Acute respiratory failure with hypoxia; R57.1 Hypovolemic shock; E43 Unspecified severe protein-calorie malnutrition; J90 Pleural effusion, not elsewhere classified; K72.90 Hepatic failure, unspecified without coma; J91.8 Pleural effusion in other conditions classified elsewhere; E87.2 Acidosis; D62 Acute posthemorrhagic anemia; E87.8 Other disorders of electrolyte and fluid balance, not elsewhere classified; K70.31 Alcoholic cirrhosis of liver with ascites; F10.21 Alcohol dependence, in remission; K80.20 Calculus of gallbladder without cholecystitis without obstruction; N62 Hypertrophy of breast; Z68.22 Body mass index [BMI] 22.0-22.9, adult; Z66 Do not resuscitate
CPT/HCPCS: 36600; 83880; 84439; 85378; A4628; C9113; G0378; J0171; J1250; J2370; J2543; J3490; J7030; J7040; J7050; J7620; J8597; P9016; P9059